=== PATIENT | male | born 1990 | race Caucasian/White ===

== ENCOUNTER 2016-07-29 13:52 | Emergency (ER) | payer MEDICAID ==
[2015-12-20 22:21] VITALS: BP 143/63
[~2016-07-29 13:52] MED LIST: AMIO200T2 PO; CARV3.12 PO; TEMA15CA6 PO
--- NOTE | 2016-07-29 15:06 | RAD ---
Left knee with patella, 4 views, 07/29/2016: History: Injury, pain No acute fracture or dislocation is identified. No joint effusion is seen. There does appear to be subcutaneous edema anteromedially. IMPRESSION: No acute bony abnormality is detected.
--- NOTE | 2016-07-29 15:20 | PHYS DOC ---
Past Medical History Past Medical History: Other Additional Past Medical Histor: V-TACH, LEUKOCYTOSIS, ELEVATED TROPONIN, CARDIOMYOPATHY Past Surgical History: Other Additional Past Surgical Histo: CARDIAC CATH WITH ANGIO-SEAL PLACEMENT Additional Information: Nonsmoker Alcohol Use: Rarely Drug Use: None Adult General Chief Complaint Chief Complaint: KNEE INJURY HPI HPI Patient is a 25 year old male who presents with left knee pain for 3 days. He injured the knee while at [employer], jumping between large trampolines. He fell and hit the knee on the pad along the edge of the trampoline and twisted the knee. He has been ambulatory, however with pain. He states that the most appropriate position is with the knee slightly bent. He denies any other injuries. His PCP is Dr. Zendejas. He does not have an orthopedic doctor. Review of Systems Review of Systems Constitutional: Denies fever or chills. [] Musculoskeletal: Denies back pain. Reports left knee pain. Integument: Denies rash or skin lesions. [] Neurologic: Denies headache, focal weakness or sensory changes. [] Allergies Allergies Allergies Coded Allergies Type Severity Reaction Last Updated Verified No Known Drug Allergies 12/10/15 No Physical Exam Physical Exam Constitutional: Well developed, well nourished, no acute distress, non-toxic appearance. [] HENT: Normocephalic, atraumatic, oropharynx moist. [] Eyes: PERRLA, EOMI, conjunctiva normal, no discharge. [] Skin: Warm, dry, no erythema, no rash. No laceration, abrasion, or ecchymosis. Extremities:Medial left knee tenderness, ROM mildly decreased, minimal medial left knee edema. 2+ DP pulse. There is no thigh, calf, ankle, or foot tenderness. Neurologic: Alert and oriented X 3, normal motor function, normal sensory function, no focal deficits noted. [] Psychologic: Affect normal, judgement normal, mood normal. [] Current Patient Data Vital Signs Vital Signs Date Time Temp Pulse Resp B/P Pulse Ox O2 Delivery O2 Flow Rate FiO2 07/29/16 14:39 98.5 68 14 96 Room Air 98.5 EKG EKG [] Radiology/Procedures Radiology/Procedures REASON: hit at [employer], heard a pop PROCEDURE: KNEE LEFT 4V Left knee with patella, 4 views, 07/29/2016: History: Injury, pain No acute fracture or dislocation is identified. No joint effusion is seen. There does appear to be subcutaneous edema anteromedially. IMPRESSION: No acute bony abnormality is detected. Course & Med Decision Making Course & Med Decision Making Pertinent Labs and Imaging studies reviewed. (See chart for details) Patient presents with left knee pain after injury 2 days ago. On exam, there is tenderness with mild swelling of the left medial knee. He is neurovascularly intact without compartment syndrome. X-ray does not show any acute fractures or dislocations. He has a knee brace from home. He declines offer for crutches. He is discharged home with prescription for Ultram. He is given contact information for orthopedics for follow-up. Return precautions were discussed. He verbalizes understanding and agrees with plan. Dragon Disclaimer Dragon Disclaimer This electronic medical record was generated, in whole or in part, using a voice recognition dictation system. Departure Departure Impression: Primary Impression: Left knee sprain Disposition: HOME, SELF-CARE Condition: STABLE Referrals: SANDOVAL ZENDEJAS MD (PCP) NEISHA HARRIS MD Patient Instructions: Knee Sprain, [id number] Additional Instructions: Your x-ray does not show any broken bones or dislocation. There is no swelling within the joint. Please wear your knee brace as needed for pain. Do not walk long distances or perform strenuous exercises. Apply ice and elevate the leg. Please follow-up with the orthopedic doctor listed below if your pain continues. Return to the emergency department with any new or concerning symptoms. Scripts Tramadol Hcl (Ultram)50 Mg [id number] Mg PO Q6H PRN PAIN #20 TAB Prov:ELIESER GORDON 07/29/16 Problem Qualifiers Primary Impression: Left knee sprain Encounter type: initial encounter Involved ligament of knee: medial collateral ligament Qualified Code: S83.412A - Sprain of medial collateral ligament of left knee, initial encounter ELIESER GORDON Jul 29, 2016 15:20
[2016-07-29] MEDS ORDERED: TRAM-29 PO (15:45)
== END 2016-07-29 15:50 | disposition home or self-care (01) ==
LOC: ER 13:52
DX: S83.92XA Sprain of unspecified site of left knee, initial encounter (principal); W09.8XXA Fall on or from other playground equipment, initial encounter; Y93.44 Activity, trampolining; Y92.89 Other specified places as the place of occurrence of the external cause; Y99.8 Other external cause status; I42.9 Cardiomyopathy, unspecified
CPT/HCPCS: 73564; 99284

== ENCOUNTER 2016-10-01 23:09 | Emergency (ER) | payer MEDICAID ==
[~2016-10-01] VITALS: Ht 185.4 cm; Wt 140.6 kg
[~2016-10-01 23:09] MED LIST changes: +TRAM-29 PO
[2016-10-02 00:02] LABS: CALCIUM 8.3 mg/dL (8.5-10.1)
[2016-10-02 00:03] LABS: GFR 92.6; POTASSIUM 3.4 mmol/L (3.5-5.1)
[2016-10-02 00:09] LABS: ALBUMIN 3.9 g/dL (3.4-5.0); ALBUMIN/GLOBULIN RATIO 1.2 (1.0-1.7); TOTAL BILIRUBIN 0.6 mg/dL (0.2-1.0); TOTAL PROTEIN 7.1 g/dL (6.4-8.2)
[2016-10-02 01:13] LABS: BARBITURATES NEG (NEG); BENZODIAZEPINES NEG (NEG); CANNABINOIDS NEG (NEG); COCAINE NEG (NEG); ETHANOL, URINE NEG (NEG); METHADONE NEG (NEG); OPIATES NEG (NEG); PHENCYCLIDINE NEG (NEG)
[2016-10-02] MEDS ORDERED: IBUPROFEN 800 MG TABLET. PO ONE (01:30)
[2016-10-02] MEDS ORDERED: PENI250T2 PO (02:43)
[2016-10-02] MEDS ORDERED: NAPR375T3 PO (02:43)
--- NOTE | 2016-10-02 02:43 | PHYS DOC ---
Past Medical History Past Medical History: Arrhythmia Additional Past Medical Histor: V-TACH, LEUKOCYTOSIS, ELEVATED TROPONIN, CARDIOMYOPATHY Past Surgical History: No Surgical History Additional Past Surgical Histo: CARDIAC CATH WITH ANGIO-SEAL PLACEMENT Alcohol Use: None Drug Use: None Adult General Chief Complaint Chief Complaint: ACCIDENTAL INGESTION HPI HPI Patient is a 25 year old male who presents with acetaminophen overdose. Patient reports over the course the day he had 16-20 Tylenol tablets, 500 mg each. This was capped by a handful that he took at 2135 tonight. He denies any attempt at self-harm, he is only try to control the pain from a toothache this started yesterday. He became concerned when he became nauseous and started having some left upper quadrant pain. He did vomit once prior to coming to the emergency Department. Review of Systems Review of Systems Constitutional: Denies fever or chills Respiratory: Denies cough or shortness of breath Cardiovascular: Denies chest pain GI: LUQ abdominal pain, nausea, vomiting. Denies diarrhea Musculoskeletal: Denies back pain or joint pain Neurologic: Denies headache, focal weakness or sensory changes Current Medications Current Medications Current Medications Medications (Trade) Dose Ordered Sig/Greer Start Time Stop Time Status Last Admin Dose Admin Ibuprofen (Motrin) 800 mg 1X ONCE 10/02/16 01:30 10/02/16 01:31 DC 10/02/16 01:45 800 MG Tramadol HCl (Ultram) 50 mg 1X ONCE 10/02/16 03:00 10/02/16 03:01 DC 10/02/16 02:47 50 MG Allergies Allergies Allergies Coded Allergies Type Severity Reaction Last Updated Verified No Known Drug Allergies 12/10/15 No Physical Exam Physical Exam Constitutional: Well developed, well nourished, no acute distress, non-toxic appearance HENT: Normocephalic, atraumatic, bilateral external ears normal; tooth #11 fractured, no abscess noted Eyes: EOMI, conjunctiva normal, no discharge Neck: Normal range of motion, no stridor Cardiovascular: Heart rate normal, regular rhythm, no murmur Lungs & Thorax: Bilateral breath sounds clear to auscultation Abdomen: Bowel sounds normal, soft, non-distended, mild LUQ TTP without guarding or rebound Skin: Warm, dry, no erythema, no rash Extremities: No obvious deformity, no edema Neurologic: Alert and oriented X 3, no gross deficits noted Psychologic: Affect normal, judgement normal, mood normal Current Patient Data Vital Signs Vital Signs Date Time Temp Pulse Resp B/P Pulse Ox O2 Delivery O2 Flow Rate FiO2 10/02/16 02:49 64 18 146/70 96 Room Air 10/01/16 23:20 98.2 98.2 Lab Values Laboratory Tests Test 10/01/16 23:40 10/02/16 01:00 10/02/16 01:40 Sodium Level 141mmol/L (136-145) Potassium Level 3.4mmol/L (3.5-5.1) L Chloride Level 103mmol/L (98-107) Carbon Dioxide Level 29mmol/L (21-32) Anion Gap 9 (6-14) Blood Urea Nitrogen 12mg/dL (8-26) Creatinine 1.0mg/dL (0.7-1.3) Estimated GFR (Cockcroft-Gault) 92.6 BUN/Creatinine Ratio 12 (6-20) Glucose Level 115mg/dL (70-99) H Calcium Level 8.3mg/dL (8.5-10.1) L Total Bilirubin 0.6mg/dL (0.2-1.0) Aspartate Amino Transferase (AST) 25U/L (15-37) Alanine Aminotransferase (ALT) 46U/L (16-63) Alkaline Phosphatase 77U/L (46-116) Total Protein 7.1g/dL (6.4-8.2) Albumin 3.9g/dL (3.4-5.0) Albumin/Globulin Ratio 1.2 (1.0-1.7) Salicylates Level < 2.8mg/dL (2.8-20.0) L Salicylate Last Dose Date Unk Salicylate Last Dose Time Unk Acetaminophen Level 21.2mcg/ml (10-30) 8.61mcg/ml (10-30) L Acetaminophen Last Dose Date Unk Unk Acetaminophen Last Dose Time Unk Unk Urine Opiates Screen Neg (NEG) Urine Methadone Screen Neg (NEG) Urine Barbiturates Neg (NEG) Urine Phencyclidine Screen Neg (NEG) Urine Amphetamine/Methamphetamine Neg (NEG) Urine Benzodiazepines Screen Neg (NEG) Urine Cocaine Screen Neg (NEG) Urine Cannabinoids Screen Neg (NEG) Urine Ethyl Alcohol Neg (NEG) Laboratory Tests 10/01/16 23:40 EKG EKG [] Radiology/Procedures Radiology/Procedures [] Course & Med Decision Making Course & Med Decision Making Pertinent Labs and Imaging studies reviewed. (See chart for details) Patient is 25-year-old male who presents with acetaminophen overdose. Will obtain labs, including acetaminophen level both now and at 4 hours after large ingestion. Dose of ibuprofen ordered for tooth pain. Acetaminophen level well below toxic threshold both on initial labs and four-hour labs. Discussed results with patient. Will discharge with precautions about acetaminophen use, instructions for follow-up with dentistry, return precautions. Dragon Disclaimer Dragon Disclaimer This electronic medical record was generated, in whole or in part, using a voice recognition dictation system. Departure Departure Impression: Primary Impression: Acetaminophen overdose Disposition: HOME, SELF-CARE Condition: STABLE Referrals: SANDOVAL LARA MD (PCP) Patient Instructions: Dental Pain Additional Instructions: Thank you for allowing us to provide care today in the Emergency Department. Take the provided medication as directed. Schedule a follow up appointment with your dentist. Return promptly to the Emergency Department if you develop any new or concerning symptoms. Scripts Naproxen 375 Mg [id number] Mg PO BID PRN PAIN #20 Prov:LYN PAUL MD 10/02/16 Penicillin V Potassium 250 Mg [id number] Mg PO QID #28 TAB Ref 0 Prov:LYN PAUL MD 10/02/16 LYN PAUL MD Oct 02, 2016 02:43
[2016-10-02 02:49] VITALS: BP 146/70
[2016-10-02] MEDS ORDERED: TRAMADOL 50 MG TABLET. PO ONE (03:00)
== END 2016-10-02 02:50 | disposition home or self-care (01) ==
LOC: ER 23:09
DX: T39.1X1A Poisoning by 4-Aminophenol derivatives, accidental (unintentional), initial encounter (principal); R11.2 Nausea with vomiting, unspecified; R10.12 Left upper quadrant pain; I42.9 Cardiomyopathy, unspecified; Y92.89 Other specified places as the place of occurrence of the external cause
CPT/HCPCS: 36415; 80053; 80305; 80320; 99284; G6038; G0481; 80196

== ENCOUNTER → 2017-10-27 | Outpatient (CLI) | payer OTHER | END | disposition home or self-care (01) | LOC: ECHO 14:30 | DX: I37.1 Nonrheumatic pulmonary valve insufficiency (principal) | CPT/HCPCS: 93306 ==

== ENCOUNTER 2018-03-30 12:31 | Inpatient (IN) | payer OTHER ==
[~2018-03-30] VITALS: Ht 185.4 cm; Wt 152.9 kg
[~2018-03-30 12:31] MED LIST changes: -AMIO200T2 PO; +AMIO200T4 PO; +NAPR-695 PO; +PENI250T85 PO; -TRAM-29 PO; +TRAM-48 PO
--- NOTE | 2018-03-30 12:59 | PHYS DOC ---
Past Medical History Past Medical History: Arrhythmia Additional Past Medical Histor: V-TACH, LEUKOCYTOSIS, ELEVATED TROPONIN, CARDIOMYOPATHY Past Surgical History: No Surgical History Additional Past Surgical Histo: CARDIAC CATH WITH ANGIO-SEAL PLACEMENT Alcohol Use: None Drug Use: None Adult General Chief Complaint Chief Complaint: SYNCOPE HPI HPI Patient is a 27 year old with history of cardiomyopathy and V. tach who presents for evaluation for V. tach episode that occurred 2 days ago. states he was standing felt generally weak, lightheaded and felt his knee may have experienced a brief LOC for 15-20 seconds. Patient continued to feel weak and presented to [facility] emergency Department where he was was found to be V. tach with a rate of 250. Patient reportedly received 150 J shock was discharged home with instructions to follow-up with his wedding florist. Patient has been compliant with his medications including Coreg. He contacted his wedding florist Dr. Pacheco this morning instructed to come to the emergency department for further workup and hospital admission. Patient denies acute symptoms or complaints at this time.[] Review of Systems Review of Systems ROS as per HPI All other systems were reviewed and found to be within normal limits, except as documented in this note. Allergies Allergies Allergies Coded Allergies Type Severity Reaction Last Updated Verified No Known Drug Allergies 12/10/15 No Physical Exam Physical Exam Constitutional: Well developed, well nourished, no acute distress, non-toxic appearance. [] HENT: Normocephalic, atraumatic, bilateral external ears normal, oropharynx moist, no oral exudates, nose normal. [] Eyes: PERRLA, EOMI, conjunctiva normal, no discharge. [] Neck: Normal range of motion, no tenderness, supple, no stridor. [] Cardiovascular:Heart rate regular rhythm, no murmur [] Lungs & Thorax: Bilateral breath sounds clear to auscultation [] Abdomen: Bowel sounds normal, soft, no tenderness, no masses, no pulsatile masses. [] Skin: Warm, dry, no erythema, no rash. [] Back: No tenderness. [] Extremities: No tenderness, no cyanosis, no clubbing, ROM intact, no edema. [] Neurologic: Alert and oriented X 3, normal motor function, normal sensory function, no focal deficits noted. [] Psychologic: Affect normal, judgement normal, mood normal. [] EKG EKG [EKG: Sinus rhythm, rate 73, no acute ST-T wave changes.] Radiology/Procedures Radiology/Procedures [CXR: reviewed] Course & Med Decision Making Course & Med Decision Making Pertinent Labs and Imaging studies reviewed. (See chart for details) [Patient was paroxysmal V. tach with persistent fatigue since last V. tach and then 2 days prior to ED arrival. Obtain basic labs, maintain on monitor and admitted to cardiology service.] Dragon Disclaimer Dragon Disclaimer This electronic medical record was generated, in whole or in part, using a voice recognition dictation system. Departure Departure Impression: Primary Impression: Ventricular tachycardia Additional Impression: Cardiomyopathy Disposition: ADMITTED INPATIENT Admitting Physician: Brandyn Zendejas Condition: STABLE Referrals: BRANDYN ZENDEJAS MD (PCP) Problem Qualifiers DANK RED DO Mar 30, 2018 12:59
--- NOTE | 2018-03-30 13:23 | EKG ---
[facility] [address] [place] [address] Test Date: 2018-03-30 Test Time: 12:46:25 Pat Name: LORENA FOX Department: Room: Gender: M Dough Puncher: [id number] : 1990 Requested By: DANK RED Order Number: [id number] Reading MD: Regan Mujica MD Measurements Intervals [place] Rate: 73 P: 51 [place]: 162 QRS: -68 QRSD: 100 T: 50 QT: 404 QTc: 449 Interpretive Statements SINUS RHYTHM ABNORMAL LEFT AXIS DEVIATION LEFT ANTERIOR FASCICULAR BLOCK INCOMPLETE RIGHT BUNDLE BRANCH BLOCK Electronically Signed On 03-30-2018 15:25:53 CDT by Regan Mujica MD
[2018-03-30 13:31] LABS: BASO % 1 % (0-3); EOS % 0 % (0-3); HEMATOCRIT 43.4 % (39.0-53.0); LYMPH % 28 % (24-48); MEAN CORPUSCULAR HEMOGLOBIN 30 pg (25-35); MEAN CORPUSCULAR HGB CONC 35 g/dL (31-37); MEAN CORPUSCULAR VOLUME 88 fL (79-100); MONO # 0.5 x10^3/uL (0.0-1.1); MONO % 6 % (0-9); NEUT # 4.7 x10^3uL (1.8-7.7); NEUT % 65 % (31-73); PLATELET COUNT 215 x10^3/uL (140-400); RED BLOOD COUNT 4.94 x10^6/uL (4.30-5.70); RED CELL DISTRIBUTION WIDTH 13.1 % (11.5-14.5); WHITE BLOOD COUNT 7.2 x10^3/uL (4.0-11.0)
[2018-03-30 13:44] LABS: CALCIUM 9.6 mg/dL (8.5-10.1); CREATININE 1.1 mg/dL (0.7-1.3); GFR 81.6; POTASSIUM 3.9 mmol/L (3.5-5.1)
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
[2018-03-30] MEDS ORDERED: DIPH50CA PO (14:37)
[2018-03-30] MEDS ORDERED: LOSA50TA7 PO (14:37)
--- NOTE | 2018-03-30 14:46 | RAD ---
EXAM: Chest, single view. HISTORY: Syncope. COMPARISON: 12/13/2015 FINDINGS: A single frontal view of the chest is obtained. There is no infiltrate, pleural effusion or pneumothorax. The heart is normal in size. IMPRESSION: No acute pulmonary finding. Electronically signed by: Maya Adames MD (03/30/2018 2:43 PM) [facility]
[2018-03-30 15:00] VITALS: BP 147/79
[2018-03-30] MEDS ORDERED: AMIODARONE 900 MG in IV DEXTROSE 5% 500 ML IV ONE (15:30)
[2018-03-30] MEDS ORDERED: AMIODARONE 150 MG in IV DEXTROSE 5% 100ML 100 ML IV ONE (15:30)
[2018-03-30 15:50] VITALS: BP 153/82
[2018-03-30 16:50] VITALS: BP 156/72
[2018-03-30 19:40] VITALS: BP 155/73
[2018-03-30] MEDS ORDERED: TEMAZEPAM 15 MG CAPSULE PO PRN (21:00)
[2018-03-30 22:45] VITALS: BP 129/93
[2018-03-30] MEDS: TEMAZEPAM 15 MG CAPSULE PO PRN (23:08)
[2018-03-30 23:14] LABS: AMPHETAMINE/METHAMPHETAMINE NEG (NEG); BARBITURATES NEG (NEG); BENZODIAZEPINES NEG (NEG); CANNABINOIDS NEG (NEG); COCAINE NEG (NEG); METHADONE NEG (NEG); OPIATES NEG (NEG); PHENCYCLIDINE NEG (NEG)
[2018-03-31] MEDS: TEMAZEPAM 15 MG CAPSULE PO PRN (00:04)
[2018-03-31 03:10] VITALS: BP 109/63
[2018-03-31 07:00] VITALS: BP 113/64
--- NOTE | 2018-03-31 08:42 | PDOC ---
PROGRESS NOTES Subjective Subjective patient was stable throughout the evening, remained in NSR no chest pain, shortness of breath or feelings of palpitations overnight no episodes of syncope overnight patient denies any other symptoms at this current time Objective Objective Vital Signs Date Time Temp Pulse Resp B/P (MAP) Pulse Ox O2 Delivery O2 Flow Rate FiO2 03/31/18 07:00 98.2 62 18 113/64 (80) 98 Room Air 98.2 Intake and Output 03/31/18 07:00 Intake Total 1520 ml Output Total 1600 ml Balance -80 ml Intake Oral 1520 ml Output Urine Total 1600 ml Physical Exam Heart: Regular rate, Normal S1, Normal S2, No murmurs General: Alert, Oriented X3, Cooperative, No acute distress Lungs: Clear to auscultation, Normal air movement Assessment Assessment Problems Medical Problems: (1) Cardiomyopathy Status: Acute (2) Ventricular tachycardia Status: Acute Plan Plan of Care echocardiogram to evaluate LV function amiodarone IV finishing 03/31 at 1530 switch IV amiodarone to po after IV completes Comment Review of Relevant I have reviewed the following items ye (where applicable) has been applied. Labs Laboratory Tests Test 03/30/18 13:04 03/30/18 22:45 03/31/18 03:30 White Blood Count 7.2 x10^3/uL (4.0-11.0) Red Blood Count 4.94 x10^6/uL (4.30-5.70) Hemoglobin 15.0 g/dL (13.0-17.5) Hematocrit 43.4 % (39.0-53.0) Mean Corpuscular Volume 88 fL (79-100) Mean Corpuscular Hemoglobin 30 pg (25-35) Mean Corpuscular Hemoglobin Concent 35 g/dL (31-37) Red Cell Distribution Width 13.1 % (11.5-14.5) Platelet Count 215 x10^3/uL (140-400) Neutrophils (%) (Auto) 65 % (31-73) Lymphocytes (%) (Auto) 28 % (24-48) Monocytes (%) (Auto) 6 % (0-9) Eosinophils (%) (Auto) 0 % (0-3) Basophils (%) (Auto) 1 % (0-3) Neutrophils # (Auto) 4.7 x10^3uL (1.8-7.7) Lymphocytes # (Auto) 2.0 x10^3/uL (1.0-4.8) Monocytes # (Auto) 0.5 x10^3/uL (0.0-1.1) Eosinophils # (Auto) 0.0 x10^3/uL (0.0-0.7) Basophils # (Auto) 0.0 x10^3/uL (0.0-0.2) Sodium Level 139 mmol/L (136-145) Potassium Level 3.9 mmol/L (3.5-5.1) Chloride Level 104 mmol/L (98-107) Carbon Dioxide Level 27 mmol/L (21-32) Anion Gap 8 (6-14) Blood Urea Nitrogen 10 mg/dL (8-26) Creatinine 1.1 mg/dL (0.7-1.3) Estimated GFR (Cockcroft-Gault) 81.6 Glucose Level 168 mg/dL (70-99) Calcium Level 9.6 mg/dL (8.5-10.1) Troponin I Quantitative 1.976 ng/mL (0.000-0.055) 1.902 ng/mL (0.000-0.055) Thyroid Stimulating Hormone (TSH) 1.202 uIU/mL (0.358-3.74) Urine Opiates Screen Neg (NEG) Urine Methadone Screen Neg (NEG) Urine Barbiturates Neg (NEG) Urine Phencyclidine Screen Neg (NEG) Urine Amphetamine/Methamphetamine Neg (NEG) Urine Benzodiazepines Screen Neg (NEG) Urine Cocaine Screen Neg (NEG) Urine Cannabinoids Screen Neg (NEG) Urine Ethyl Alcohol Neg (NEG) Laboratory Tests Test 03/30/18 13:04 03/30/18 22:45 03/31/18 03:30 White Blood Count 7.2 x10^3/uL (4.0-11.0) Red Blood Count 4.94 x10^6/uL (4.30-5.70) Hemoglobin 15.0 g/dL (13.0-17.5) Hematocrit 43.4 % (39.0-53.0) Mean Corpuscular Volume 88 fL (79-100) Mean Corpuscular Hemoglobin 30 pg (25-35) Mean Corpuscular Hemoglobin Concent 35 g/dL (31-37) Red Cell Distribution Width 13.1 % (11.5-14.5) Platelet Count 215 x10^3/uL (140-400) Neutrophils (%) (Auto) 65 % (31-73) Lymphocytes (%) (Auto) 28 % (24-48) Monocytes (%) (Auto) 6 % (0-9) Eosinophils (%) (Auto) 0 % (0-3) Basophils (%) (Auto) 1 % (0-3) Neutrophils # (Auto) 4.7 x10^3uL (1.8-7.7) Lymphocytes # (Auto) 2.0 x10^3/uL (1.0-4.8) Monocytes # (Auto) 0.5 x10^3/uL (0.0-1.1) Eosinophils # (Auto) 0.0 x10^3/uL (0.0-0.7) Basophils # (Auto) 0.0 x10^3/uL (0.0-0.2) Sodium Level 139 mmol/L (136-145) Potassium Level 3.9 mmol/L (3.5-5.1) Chloride Level 104 mmol/L (98-107) Carbon Dioxide Level 27 mmol/L (21-32) Anion Gap 8 (6-14) Blood Urea Nitrogen 10 mg/dL (8-26) Creatinine 1.1 mg/dL (0.7-1.3) Estimated GFR (Cockcroft-Gault) 81.6 Glucose Level 168 mg/dL (70-99) Calcium Level 9.6 mg/dL (8.5-10.1) Troponin I Quantitative 1.976 ng/mL (0.000-0.055) 1.902 ng/mL (0.000-0.055) Thyroid Stimulating Hormone (TSH) 1.202 uIU/mL (0.358-3.74) Urine Opiates Screen Neg (NEG) Urine Methadone Screen Neg (NEG) Urine Barbiturates Neg (NEG) Urine Phencyclidine Screen Neg (NEG) Urine Amphetamine/Methamphetamine Neg (NEG) Urine Benzodiazepines Screen Neg (NEG) Urine Cocaine Screen Neg (NEG) Urine Cannabinoids Screen Neg (NEG) Urine Ethyl Alcohol Neg (NEG) Medications Current Medications Amiodarone HCl 150 mg/Dextrose 103 ml @ 618 mls/hr 1X ONCE IV Last administered on 03/30/18at 15:40; Start 03/30/18 at 15:30; Stop 03/30/18 at 15 :39; Status DC Amiodarone HCl 900 mg/Dextrose 518 ml @ 0 mls/hr 1X ONCE IV Last administered on 03/30/18at 15:48; Start 03/30/18 at 15:30; Stop 03/30/18 at 15:31; Status DC Temazepam (Restoril) 15 mg PRN QHS PRN PO INSOMNIA, MAY REPEAT X1 Last administered on 03/31/18at 00:04; Start 03/30/18 at 17:45 Amiodarone HCl (Cordarone) 400 mg BID PO ; Start 03/31/18 at 09:00 Temazepam (Restoril) 30 mg PRN QHS PRN PO INSOMNIA; Start 03/30/18 at 21:00; Status UNV Active Scripts Active Coreg (Carvedilol) 3.125 Mg Tablet 1 Tab PO BID Reported Diphenhydramine Hcl 50 Mg Capsule 50 Mg PO HS PRN Losartan Potassium 50 Mg Tablet 50 Mg PO DAILY Vitals/I & O Vital Sign - Last 24 Hours 03/30/18 03/30/18 03/30/18 03/30/18 12:38 12:50 13:20 14:30 Temp 98.2 98.2 Pulse 85 88 70 Resp 18 18 18 B/P (MAP) 150/71 (97) 150/71 (97) 158/67 (97) Pulse Ox 96 98 96 O2 Delivery Room Air Room Air Room Air Room Air 03/30/18 03/30/18 03/30/18 03/30/18 15:00 15:40 15:50 16:50 Temp 97.6 97.6 Pulse 84 81 74 75 Resp 18 B/P (MAP) 147/79 (101) 153/82 (105) 156/72 (100) Pulse Ox 96 O2 Delivery Room Air 03/30/18 03/30/18 03/30/18 03/31/18 19:40 20:00 22:45 03:10 Temp 97.9 97.7 97.7 97.9 97.7 97.7 Pulse 65 66 63 Resp 18 18 20 B/P (MAP) 155/73 (100) 129/93 (105) 109/63 (78) Pulse Ox 96 97 97 O2 Delivery Room Air Room Air Room Air Room Air 03/31/18 07:00 Temp 98.2 98.2 Pulse 62 Resp 18 B/P (MAP) 113/64 (80) Pulse Ox 98 O2 Delivery Room Air Intake and Output 03/30/18 03/30/18 03/31/18 15:00 23:00 07:00 Intake Total 400 ml 1120 ml Output Total 1150 ml 450 ml Balance -750 ml 670 ml SANDOVAL LARA MD Mar 31, 2018 08:42
[2018-03-31] MEDS: AMIODARONE HCL 200 MG TABLET. PO SCH ×2 (09:24→21:33)
[2018-03-31 10:58] VITALS: BP 115/51
[2018-03-31 15:00] VITALS: BP 132/81
--- NOTE | 2018-03-31 18:51 | CARD ---
MR#: [id number] Date of Study: 03/31/2018 Ordering Physician: BRANDYN LARA, Referring Physician: BRANDYN LARA, Tech: Annmarie Jimenez RDCS APPROVED REPORT EXAM: Two-dimensional and M-mode echocardiogram with Doppler and color Doppler. Other Information Quality : AverageHR: 88bpm Rhythm : NSR INDICATION Cardiomyopathy 2D DIMENSIONS RVDd2.3 (2.9-3.5cm)Left Atrium(2D)3.5 (1.6-4.0cm) IVSd1.2 (0.7-1.1cm)Aortic Root(2D)3.0 (2.0-3.7cm) LVDd6.1 (3.9-5.9cm)LVOT Diameter2.3 (1.8-2.4cm) PWd1.0 (0.7-1.1cm)LVDs4.5 (2.5-4.0cm) FS (%) 25.1 %SV89.7 ml LVEF(%)40.0 (>50%) M-Mode DIMENSIONS RVDd1.83 (2.1-3.2cm)Left Atrium(MM)3.44 (2.5-4.0cm) IVSd1.18 (0.7-1.1cm)Aortic Root3.82 (2.2-3.7cm) Aortic Valve AoV Peak Jah.118.8cm/sAoV VTI26.6cm AO Peak GR.5.6mmHgLVOT Peak Jah.82.8cm/s AO Mean GR.4mmHgAVA (VMAX)2.91cm2 HELEN (VTI)2.50cm2 Mitral Valve MV E Fctgveih771.2cm/sMV E Peak Gr.4mmHg MV DECEL [id number] A Ilyhgkws43.6cm/s MV E Mean Gr.2mmHgE/A Ratio2.0 MV A [id number] Pulmonary Valve PV Peak Xalakncf822.1cm/s Tricuspid Valve TR P. Hpiizgci573ow/sRAP HKXKHQRN9dfOm TR Peak Gr.81zqKcVVYI72zyPa Pulmonary Vein S1 Zgkmqoer58.4cm/sD2 Xmbakevg94.9cm/s PVa [id number] LEFT VENTRICLE The Left Ventricle is mildly dilated. There is borderline concentric left ventricular hypertrophy. Th e systolic function is impaired. The Ejection Fraction is 40%. The left ventricular diastolic functio n and filling is normal for age. RIGHT VENTRICLE The right ventricle is normal size. There is normal right ventricular wall thickness. The right ventr icular systolic function is normal. ATRIA The left atrium size is normal. The right atrium size is normal. The interatrial septum is intact wit h no evidence for an atrial septal defect or patent foramen ovale as noted on 2-D or Doppler imaging. AORTIC VALVE The aortic valve is normal in structure and function. The aortic valve is trileaflet. Doppler and Col or Flow revealed no significant aortic regurgitation. There is no significant aortic valvular stenosi s. There is no aortic valvular vegetation. MITRAL VALVE The mitral valve is normal in structure There is no evidence of mitral valve prolapse. There is no mi tral valve stenosis. Doppler and Color-flow revealed trace mitral regurgitation. TRICUSPID VALVE The tricuspid valve is normal in structure and function. Doppler and Color Flow revealed trace tricus pid regurgitation. The PA pressure was estimated at 21 mmHg. There is no tricuspid valve prolapse or vegetation. There is no tricuspid valve stenosis. PULMONIC VALVE The pulmonary valve is normal in structure and function. Doppler and Color Flow revealed no pulmonic valvular regurgitation. There is no pulmonic valvular stenosis. GREAT VESSELS The aortic root is normal in size. The ascending aorta is normal in size. PERICARDIAL EFFUSION There is no evidence of significant pericardial effusion. Critical Notification Critical Value: No <Conclusion> The systolic function is impaired. The Ejection Fraction is 40%. The Left Ventricle is mildly dilated. There is borderline concentric left ventricular hypertrophy. The left atrium size is normal. The right atrium size is normal. The aortic valve is normal in structure and function. The aortic valve is trileaflet. Doppler and Color-flow revealed trace mitral regurgitation. Doppler and Color Flow revealed trace tricuspid regurgitation. The PA pressure was estimated at 21 mmHg. The pulmonary valve is normal in structure and function. There is no evidence of significant pericardial effusion. Signed by : Brandyn Lara MD Electronically Approved : 03/31/2018 18:50:58
[2018-03-31 19:36] VITALS: BP 146/81
[2018-03-31 23:59] VITALS: BP 130/72
[2018-04-01] MEDS: TEMAZEPAM 15 MG CAPSULE PO PRN ×2 (00:59→01:40)
[2018-04-01 03:00] VITALS: BP 124/77
[2018-04-01 07:15] VITALS: BP_SYST 10; BP_SYST 102; BP_DIAS 53
[2018-04-01] MEDS: AMIODARONE HCL 200 MG TABLET. PO SCH (09:06)
--- NOTE | 2018-04-01 09:06 | PDOC ---
PROGRESS NOTES Subjective Subjective patient feeling well overnight, no complaints this morning he has had no chest pain, no shortness of breath, or feeling of palpitations had run of 4 PVC's at 645 this AM, patient denied any symptoms at that time Objective Objective Vital Signs Date Time Temp Pulse Resp B/P (MAP) Pulse Ox O2 Delivery O2 Flow Rate FiO2 04/01/18 07:15 98.5 69 18 10/53 (39) 96 Room Air 98.5 Intake and Output 04/01/18 07:00 Intake Total 1600 ml Output Total 1625 ml Balance -25 ml Intake Oral 1600 ml Output Urine Total 1625 ml Physical Exam Heart: Regular rate, Normal S1, Normal S2, No murmurs Extremities: No cyanosis, No edema, Normal pulses General: Alert, Oriented X3, Cooperative Assessment Assessment Problems Medical Problems: (1) Cardiomyopathy Status: Acute (2) Ventricular tachycardia Status: Acute Plan Plan of Care continue po amiodarone for rhythm control Comment Review of Relevant I have reviewed the following items ye (where applicable) has been applied. Labs Laboratory Tests Test 03/30/18 13:04 03/30/18 22:45 03/31/18 03:30 White Blood Count 7.2 x10^3/uL (4.0-11.0) Red Blood Count 4.94 x10^6/uL (4.30-5.70) Hemoglobin 15.0 g/dL (13.0-17.5) Hematocrit 43.4 % (39.0-53.0) Mean Corpuscular Volume 88 fL (79-100) Mean Corpuscular Hemoglobin 30 pg (25-35) Mean Corpuscular Hemoglobin Concent 35 g/dL (31-37) Red Cell Distribution Width 13.1 % (11.5-14.5) Platelet Count 215 x10^3/uL (140-400) Neutrophils (%) (Auto) 65 % (31-73) Lymphocytes (%) (Auto) 28 % (24-48) Monocytes (%) (Auto) 6 % (0-9) Eosinophils (%) (Auto) 0 % (0-3) Basophils (%) (Auto) 1 % (0-3) Neutrophils # (Auto) 4.7 x10^3uL (1.8-7.7) Lymphocytes # (Auto) 2.0 x10^3/uL (1.0-4.8) Monocytes # (Auto) 0.5 x10^3/uL (0.0-1.1) Eosinophils # (Auto) 0.0 x10^3/uL (0.0-0.7) Basophils # (Auto) 0.0 x10^3/uL (0.0-0.2) Sodium Level 139 mmol/L (136-145) Potassium Level 3.9 mmol/L (3.5-5.1) Chloride Level 104 mmol/L (98-107) Carbon Dioxide Level 27 mmol/L (21-32) Anion Gap 8 (6-14) Blood Urea Nitrogen 10 mg/dL (8-26) Creatinine 1.1 mg/dL (0.7-1.3) Estimated GFR (Cockcroft-Gault) 81.6 Glucose Level 168 mg/dL (70-99) Calcium Level 9.6 mg/dL (8.5-10.1) Troponin I Quantitative 1.976 ng/mL (0.000-0.055) 1.902 ng/mL (0.000-0.055) Thyroid Stimulating Hormone (TSH) 1.202 uIU/mL (0.358-3.74) Urine Opiates Screen Neg (NEG) Urine Methadone Screen Neg (NEG) Urine Barbiturates Neg (NEG) Urine Phencyclidine Screen Neg (NEG) Urine Amphetamine/Methamphetamine Neg (NEG) Urine Benzodiazepines Screen Neg (NEG) Urine Cocaine Screen Neg (NEG) Urine Cannabinoids Screen Neg (NEG) Urine Ethyl Alcohol Neg (NEG) Medications Current Medications Amiodarone HCl 150 mg/Dextrose 103 ml @ 618 mls/hr 1X ONCE IV Last administered on 03/30/18at 15:40; Start 03/30/18 at 15:30; Stop 03/30/18 at 15 :39; Status DC Amiodarone HCl 900 mg/Dextrose 518 ml @ 0 mls/hr 1X ONCE IV Last administered on 03/30/18at 15:48; Start 03/30/18 at 15:30; Stop 03/30/18 at 15:31; Status DC Temazepam (Restoril) 15 mg PRN QHS PRN PO INSOMNIA, MAY REPEAT X1 Last administered on 04/01/18at 01:40; Start 03/30/18 at 17:45 Amiodarone HCl (Cordarone) 400 mg BID PO Last administered on 03/31/18at 21:33 ; Start 03/31/18 at 09:00 Temazepam (Restoril) 30 mg PRN QHS PRN PO INSOMNIA; Start 03/30/18 at 21:00; Status UNV Active Scripts Active Coreg (Carvedilol) 3.125 Mg Tablet 1 Tab PO BID Reported Diphenhydramine Hcl 50 Mg Capsule 50 Mg PO HS PRN Losartan Potassium 50 Mg Tablet 50 Mg PO DAILY Vitals/I & O Vital Sign - Last 24 Hours 03/31/18 03/31/18 03/31/18 03/31/18 09:24 10:58 15:00 19:35 Temp 97.7 98.0 97.7 98.0 Pulse 78 75 76 Resp 18 18 B/P (MAP) 115/51 (72) 132/81 (98) Pulse Ox 95 97 O2 Delivery Room Air Room Air Room Air 03/31/18 03/31/18 03/31/18 04/01/18 19:36 21:33 23:59 03:00 Temp 98.5 98.5 98.3 98.5 98.5 98.3 Pulse 78 78 71 72 Resp 16 16 16 B/P (MAP) 146/81 (102) 146/81 130/72 (91) 124/77 (93) Pulse Ox 96 98 96 O2 Delivery Room Air Room Air Room Air 04/01/18 07:15 Temp 98.5 98.5 Pulse 69 Resp 18 B/P (MAP) 10/53 (39) Pulse Ox 96 O2 Delivery Room Air Intake and Output 03/31/18 03/31/18 04/01/18 15:00 23:00 07:00 Intake Total 1200 ml 400 ml Output Total 1100 ml 300 ml 225 ml Balance -1100 ml 900 ml 175 ml SANDOVAL LARA MD Apr 01, 2018 09:06
[2018-04-01 11:10] VITALS: BP 115/55
[2018-04-01] MEDS ORDERED: AMIO200T4 PO ×2 (11:43→11:44)
--- NOTE | 2018-04-01 14:25 | PDOC3 ---
*Discharge Summary* Date of Admission: Mar 30, 2018 Date of Discharge: Apr 01, 2018 Admitting Diagnosis Problems Medical Problems: (1) Cardiomyopathy Status: Acute (2) Ventricular tachycardia Status: Acute Final Diagnosis Problems Medical Problems: (1) Cardiomyopathy Status: Acute (2) Ventricular tachycardia Status: Acute Procedures echocardiogram Brief Hospital Course Mr. Marmolejo is a 27 old male who presented with a syncopal episode. He was at his girlfriends house on 03/28, when he felt weak and had a syncopal episode, where he was unconscious for an undetermined period of time. He went to [facility] ER where he was found to be in Vtach, and he was cardioverted x2. He was discharged from the hospital the morning of 03/29, and went home and slept. He reported to [facility] on 03/30 in NSR. While he was PMC, he had no chest pain, no shortness of breath, no palpitations. The patient was able to tolerate IV amiodarone well, and has no complaints while being in the hospital. His initial dosing of amiodarone ws 150mg IV over 10 min, then 1mg/min for 6 hours, then 0.5mg/min for 18 hours. The patient was then switched to amiodarone 400mg po bid. Disposition/Orders: D/C to Home CONDITION AT DISCHARGE: Improved, Stable Diet: Regular Home Meds Active Scripts Carvedilol (COREG) 3.125 Mg Tablet, 1 TAB PO BID, #180 TAB 1 Refill Prov:MAIKEL CASTANEDA MD 12/14/15 Reported Medications Amiodarone Hcl (AMIODARONE HCL) 200 Mg Tablet, 1 TAB PO DAILY, #90 TAB 1 Refill 04/01/18 Amiodarone Hcl (AMIODARONE HCL) 200 Mg Tablet, 1 TAB PO BID for 7 Days, #14 TAB 1 Refill 04/01/18 Diphenhydramine Hcl (DIPHENHYDRAMINE HCL) 50 Mg Capsule, 50 MG PO HS PRN for INSOMNIA, CAP 03/30/18 Discontinued Reported Medications Losartan Potassium (LOSARTAN POTASSIUM) 50 Mg Tablet, 50 MG PO DAILY, TAB 03/30/18 Scheduled Amiodarone Hcl (Amiodarone Hcl), 1 TAB PO BID, (Reported) Amiodarone Hcl (Amiodarone Hcl), 1 TAB PO DAILY, (Reported) Carvedilol (Coreg), 1 TAB PO BID Scheduled PRN Diphenhydramine Hcl (Diphenhydramine Hcl), 50 MG PO HS PRN for INSOMNIA, ( Reported) Discontinued Medications Losartan Potassium (Losartan Potassium), 50 MG PO DAILY, (Reported) FOLLOW UP APPOINTMENT: 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 Instructed patient to see myself in clinic after he sees the EP physician. Patient instructed to not return to work until after he has gone to see the electrophsiologist and myself, to clear him for active labor. Time Spent Total time spent with patient [] minutes for coordination of care, counseling, and education. SANDOVAL LARA MD Apr 01, 2018 14:25
== END 2018-04-01 12:20 | disposition home or self-care (01) | DRG 309 ==
LOC: ER 12:31 → 2 NORTH 13:30
PROVIDERS: ADMIT Internal Medicine Cardiovascular Disease; ATTEND Internal Medicine Cardiovascular Disease
DX: I47.2 Ventricular tachycardia (principal); I42.9 Cardiomyopathy, unspecified; I10 Essential (primary) hypertension; Z82.49 Family history of ischemic heart disease and other diseases of the circulatory system
CPT/HCPCS: 36415; 71045; 80048; 80307; 84443; 84484; 85025; 93005; 93306; J0282; 99285-25; G0479